=== PATIENT | female | born 1955 | race Caucasian/White ===

== ENCOUNTER 2017-03-30 18:15 | Emergency (ER) | payer BC ==
[~2017-03-30] VITALS: Ht 157.5 cm; Wt 102.1 kg
[~2017-03-30 18:15] MED LIST: ARMOUR THYROID300 MG PO; BACTRIM DS TAB1 EACH PO; CEPHALEXIN500 MG PO; FISH OIL 1,0001 EACH PO; FOLIC ACID1 MG PO; LEVOTHYROXINE50 MCG PO; LIDEX30 GM TP; METHOTREXATE2.5 MG PO; NORCO 5-325 TA1 EACH PO; PLAQUENIL200 MG PO; PRILOSEC20 MG PO
[2017-03-30] MEDS ORDERED: XELJANZ XR11 MG (18:29)
[2017-03-30] MEDS ORDERED: CELEBREX200 MG (18:30)
[2017-03-30] MEDS ORDERED: ZITHROMAX250 MG PO (19:37)
[2017-03-30] MEDS ORDERED: ROBITUSSIN COU1 EACH PO (19:37)
--- NOTE | 2017-04-01 16:21 | EKG ---
[facility] [address] [facility] [place] [address] Signed Normal sinus rhythm Low voltage QRS Abnormal ECG No previous ECGs available Confirmed by VALERIE BLEDSOE MD ([id number]) on 04/01/2017 4:21:00 PM Electronically Signed By: VALERIE BLEDSOE MD 04/01/17 1621 PATIENT NAME: EVERETTE COOK MELQUIADES Electrocardiogram DATE OF : 51 PHYSICIAN: VALERIE BLEDSOE MD REPORT #: [id number] REPORT IS CONFIDENTIAL AND NOT TO BE RELEASED WITHOUT AUTHORIZATION
== END 2017-03-30 19:58 | disposition home or self-care (01) ==
LOC: ED 18:15
DX: J20.9 Acute bronchitis, unspecified (principal); E03.9 Hypothyroidism, unspecified; Z88.5 Allergy status to narcotic agent; Z88.0 Allergy status to penicillin; Z79.899 Other long term (current) drug therapy
CPT/HCPCS: 71010; 71020; 93005; 93010; 99283

== ENCOUNTER 2021-05-21 23:36 | Emergency (ER) | payer MEDICARE ==
[~2021-05-21] VITALS: Ht 157.5 cm; Wt 102.1 kg
[~2021-05-21 23:36] MED LIST changes: +CELEBREX200 MG; +ROBITUSSIN COU1 EACH PO; +XELJANZ XR11 MG; +ZITHROMAX250 MG PO
--- OUTSIDE RECORDS SUMMARY | 2021-05-21 23:44 | XMS ---
PreManage Notification: JOYCE [employer] Events No recent Security Events currently on file CRITERIA MET - Group Notification CARE PROVIDERS There are no care providers on record at this time. Juan has no Care Guidelines for this patient. Ignacia VISIT COUNT (12 MO.) 1 KEATON Kelly TOTAL 1 NOTE: Visits indicate total known visits. ED/UCC VISIT TRACKING (12 MO.) 05/21/2021 23:37 KEATON [facility] OR TYPE: Emergency COMPLAINT: - COLD SYMPTOMS INPATIENT VISIT TRACKING (12 MO.) No inpatient visits to display in this time frame [email or web address]
[2021-05-22] MEDS ORDERED: LEVOTHYROXINE100 MCG PO (00:54)
== END 2021-05-22 01:50 | disposition home or self-care (01) ==
LOC: ED 23:36
DX: J20.9 Acute bronchitis, unspecified (principal); M19.90 Unspecified osteoarthritis, unspecified site; E03.9 Hypothyroidism, unspecified; Z20.822 Contact with and (suspected) exposure to COVID-19; Z88.0 Allergy status to penicillin; Z88.5 Allergy status to narcotic agent; Z79.890 Hormone replacement therapy
CPT/HCPCS: 71045; 99284-25; C9803; U0003